=== PATIENT | male | born 1965 | race Caucasian/White ===

== ENCOUNTER 2016-12-18 17:50 | Emergency (ER) | payer BC ==
[~2016-12-18] VITALS: Ht 175.3 cm; Wt 76.6 kg
[2016-12-18 17:57] VITALS: Ht 175.3 cm; Wt 76.6 kg
[2016-12-18] MEDS ORDERED: morphine 4 MG/ML VIAL IV STA (20:58)
[2016-12-18] MEDS ORDERED: SOD CHLORIDE 0.9% 1,000 ML IV STA (20:58)
[2016-12-18] MEDS ORDERED: ONDANSETRON 4 MG INJ IV STA (20:58)
[2016-12-18] MEDS ORDERED: CYAN100080 PO (21:24)
[2016-12-18] MEDS ORDERED: CLOP75TA4 PO (21:25)
[2016-12-18] MEDS ORDERED: ERGO500037 PO (21:25)
[2016-12-18] MEDS ORDERED: INSU200I4 SQ (21:25)
[2016-12-18] MEDS ORDERED: METO25TA7 PO (21:26)
[2016-12-18] MEDS ORDERED: ATOR10TA65 PO (21:27)
[2016-12-18] MEDS ORDERED: BUPR75TA9 PO (21:27)
[2016-12-18] MEDS ORDERED: SERT-165 PO (21:28)
[2016-12-18] MEDS ORDERED: LISI10TA2 PO (21:28)
[2016-12-18] MEDS ORDERED: ASPI-664 PO (21:28)
[2016-12-18] MEDS ORDERED: MIRT15TA5 PO (21:28)
[2016-12-18] MEDS ORDERED: PREG150C PO (21:29)
[2016-12-18] MEDS ORDERED: VITA400C15 PO (21:37)
[2016-12-18 21:38] LABS: ADD SCAN DIFF NO
[2016-12-18] MEDS ORDERED: CALC-621 PO (21:38)
[2016-12-18] MEDS ORDERED: CICL34.6 TP (21:39)
[2016-12-18] MEDS ORDERED: CALC1TAB98 PO (21:39)
[2016-12-18 21:40] LABS: HEMOGLOBIN 13.9 g/dl (14.0-18.0); MEAN CORPUSCULAR HEMOGLOBIN 28.3 pg (29.0-33.0); MEAN CORPUSCULAR HGB CONC 33.1 g/dl (32.0-37.0); MEAN CORPUSCULAR VOLUME 85.5 fl (82.0-101.0); MEAN PLATELET VOLUME 10.8 fl (7.4-10.4); PLATELET COUNT 167 10^3/UL (140-415); RED BLOOD COUNT 4.91 10^6/ul (4.70-6.10); RED CELL DISTRIBUTION WIDTH 13.1 % (11.5-14.5); WHITE BLOOD COUNT 5.4 10^3/ul (4.8-10.8)
[2016-12-18] MEDS ORDERED: PYRI100T59 PO (21:41)
[2016-12-18] MEDS ORDERED: GLUC1CAP16 PO (21:42)
[2016-12-18] MEDS ORDERED: [UNRECOGNIZED DRUG - OTHER] PO (21:44)
[2016-12-18 22:02] LABS: ALBUMIN 4.5 g/dl (3.3-4.9); POTASSIUM 3.9 mmol/L (3.5-5.1)
[2016-12-18 22:04] LABS: BILIRUBIN,INDIRECT 0.6 mg/dl (0-1.1); BILIRUBIN,TOTAL 0.6 mg/dl (0.2-1.3); CREATININE 0.82 mg/dl (0.61-1.24)
[2016-12-18 22:05] LABS: ALBUMIN/GLOBULIN RATIO 1.28
[2016-12-18] MEDS ORDERED: ONDA4TAB14 PO (22:11)
[2016-12-18] MEDS ORDERED: IBUP-1542 PO (22:11)
[2016-12-18 22:40] LABS: URINE BLOOD (Dip) POC Negative (NEGATIVE)
--- NOTE | 2016-12-18 22:45 | ERA ---
ER Documentation Chief Complaint Date/Time DATE: 12/18/16 TIME: 22:43 Chief Complaint ap x 2 weeks HPI Patient is a 51-year-old male with diabetes who presents with abdominal pain and vomiting. The patient was sent from the [facility] clinic by the nurse practitioner for further workup and evaluation with laboratory studies and ultrasound. The patient has had this pain for the past 2 weeks and it has been continuous. He has diarrhea as well. He initially had vomiting but the vomiting has stopped. He tried Pepto-Bismol and Imodium. Upon review of old medical records this is the patient's first visit to the emergency department. ROS All systems reviewed and are negative except as per history of present illness. Medications Home Meds Active Scripts Ondansetron (Ondansetron Odt) 4 Mg Tab.rapdis, 4 MG PO Q6H Y for NAUSEA AND/OR VOMITING, #10 TAB Prov:DOUGLAS CAPELLAN MD 12/18/16 Ibuprofen* (Motrin*) 600 Mg Tab, 600 MG PO Q6H Y for PAIN AND OR ELEVATED TEMP, #30 TAB Prov:DOUGLAS CAPELLAN MD 12/18/16 Reported Medications Fa/Mv,Ca,Iron,Min/Lycopene/Lut (CENTRAVITES TABLET) 1 Each Tablet, 1 EACH PO DAILY, TAB 12/18/16 Gluc HCl/Csa/Iman Hy/Hyalur AC (Glucosamine Chondroitin Cap) 1 Each Capsule, 1 EACH PO DAILY, CAP 12/18/16 Pyridoxine Hcl* (Vitamin B-6*) 100 Mg Tablet, 100 MG PO DAILY, TAB 12/18/16 Ciclopirox/Ure/Camph/Menth/Euc (CICLOPIROX 8% TREATMENT KIT) 34.6 Ml Solution, 1 APPLIC TP QHS, BOTTLE 12/18/16 Calcium Carbonate/Vitamin D3 (Calcium 600 + Vit D 200 Tablet) 1 Each Tablet, 1 EACH PO DAILY, TAB 12/18/16 Vitamin E* (Vitamin E*) 400 Unit Capsule, 400 UNIT PO DAILY, CAP 12/18/16 Pregabalin* (Lyrica*) 150 Mg Capsule, 150 MG PO TID, CAP 12/18/16 Lisinopril* (Lisinopril*) 10 Mg Tablet, 10 MG PO DAILY, #30 TAB 12/18/16 Mirtazapine* (Mirtazapine*) 15 Mg Tablet, 15 MG PO HS, TAB 12/18/16 Aspirin* (Aspirin* EC) 81 Mg Tablet.dr, 81 MG PO DAILY, TAB 12/18/16 Sertraline Hcl* (Sertraline Hcl*) 100 Mg Tablet, 100 MG PO DAILY, #30 TAB 12/18/16 Bupropion Hcl* (Bupropion Hcl*) 75 Mg Tablet, 75 MG PO QAM, TAB 12/18/16 Atorvastatin Calcium (Atorvastatin Calcium) 10 Mg Tablet, 10 MG PO DAILY, #30 TAB 12/18/16 Metoprolol Succinate* (Toprol XL*) 25 Mg Tab.sr.24h, 12.5 MG PO BID, #30 TAB 12/18/16 Insulin Degludec (Tresiba Flextouch U-200) 200 Unit/1 Ml Insuln.pen, 100 UNIT SQ QHS 12/18/16 Clopidogrel Bisulfate* (Clopidogrel Bisulfate*) 75 Mg Tablet, 75 MG PO DAILY, # 30 TAB 12/18/16 Ergocalciferol (Vitamin D2) (VITAMIN D2) 50,000 Unit Capsule, 58778 UNIT PO Q7D , CAP 12/18/16 Cyanocobalamin* (Vitamin B-12*) 1,000 Mcg Tablet.sa, 1000 MCG PO DAILY, TAB 12/18/16 Discontinued Reported Medications Calcium Carbonate-Vitamin D3 (Calcium 600 + Vit D3) 1 Each Tablet, 1 TAB PO DAILY, TAB 12/18/16 Allergies Allergies: Coded Allergies: iodine (Unverified Allergy, Unknown, 12/18/16) Uncoded Allergies: IV CONTRAST (Allergy, Unknown, 12/18/16) PMhx/Soc Medical and Surgical Hx: pt denies Surgical Hx Hx Neurological Disorder: Yes (memory impairred ) Hx Respiratory Disorders: No Hx Cardiac Disorders: Yes (htn) Hx Miscellaneous Medical Probl: Yes (diabetes) Hx Alcohol Use: No Hx Substance Use: No Hx Tobacco Use: No Smoking Status: Unknown if ever smoked Physical Exam Vitals Vital Signs Date Time Temp Pulse Resp B/P Pulse Ox O2 Delivery O2 Flow Rate FiO2 12/18/16 17:57 97.7 83 18 131/79 99 Physical Exam Const: [] Head: Atraumatic Eyes: Normal Conjunctiva ENT: Normal External Ears, Nose and Mouth. Neck: Full range of motion..~ No meningismus. Resp: Clear to auscultation bilaterally Cardio: Regular rate and rhythm, no murmurs Abd: Soft, non tender, non distended. Normal bowel sounds Skin: No petechiae or rashes Back: No midline or flank tenderness Ext: No cyanosis, or edema Neur: Awake and alert Psych: Normal Mood and Affect Result Diagram: 12/18/16211912/18/162119 Results 24 hrs Laboratory Tests Test 12/18/16 21:18 12/18/16 21:20 12/18/16 22:40 Bedside Glucose 76mg/dL White Blood Count 5.410^3/ul Red Blood Count 4.9110^6/ul Hemoglobin 13.9g/dl Hematocrit 42.0% Mean Corpuscular Volume 85.5fl Mean Corpuscular Hemoglobin 28.3pg Mean Corpuscular Hemoglobin Concent 33.1g/dl Red Cell Distribution Width 13.1% Platelet Count 60072^3/UL Mean Platelet Volume 10.8fl Sodium Level 143mmol/L Potassium Level 3.9mmol/L Chloride Level 102mmol/L Carbon Dioxide Level 27mmol/L Anion Gap 18 Blood Urea Nitrogen 12mg/dl Creatinine 0.82mg/dl Glucose Level 82mg/dl Calcium Level 9.0mg/dl Total Bilirubin 0.6mg/dl Direct Bilirubin 0.00mg/dl Indirect Bilirubin 0.6mg/dl Aspartate Amino Transf (AST/SGOT) 26IU/L Alanine Aminotransferase (ALT/SGPT) 32IU/L Alkaline Phosphatase 69IU/L Total Protein 8.0g/dl Albumin 4.5g/dl Globulin 3.50g/dl Albumin/Globulin Ratio 1.28 Lipase 87U/L Bedside Urine pH (LAB) 7.0 Bedside Urine Protein (LAB) Negative Bedside Urine Glucose (UA) Negative Bedside Urine Ketones (LAB) Negative Bedside Urine Blood Negative Bedside Urine Nitrite (LAB) Negative Bedside Urine Leukocyte Esterase (L Negative Current Medications Medications (Trade) Dose Ordered Sig/Oscar Route PRN Reason Start Time Stop Time Status Last Admin Dose Admin Sodium Chloride (NS) 1,000 ml @ 1,000 mls/hr Q1H STAT IV 12/18/16 20:58 12/18/16 21:57 DC 12/18/16 21:15 Morphine Sulfate (morphine) 4 mg ONCE STAT IV 12/18/16 20:58 12/18/16 20:59 DC 12/18/16 21:15 Ondansetron HCl (Zofran Inj) 4 mg ONCE STAT IV 12/18/16 20:58 12/18/16 20:59 DC 12/18/16 21:15 Departure Diagnosis: Primary Impression: Vomiting and diarrhea Additional Impression: Abdominal pain Condition: Fair Patient Instructions: Abdominal Pain, Self-Care for Vomiting and Diarrhea Referrals: Your doctor Additional Instructions: Call your primary care doctor TOMORROW for an appointment during the next 1-2 days.See the doctor sooner or return here if your condition worsens before your appointment time. DOUGLAS CAPELLAN MD Dec 18, 2016 22:44
--- NOTE | 2016-12-18 22:46 | RADRPT ---
PROCEDURE: CT abdomen and pelvis without contrast. CLINICAL INDICATION: Abdominal pain and left lower quadrant pain with diarrhea TECHNIQUE: CT scan of the abdomen and pelvis without contrast was performed on a multislice CT [facility] [place] utilizing axial imaging from the lung bases through the pubis symphysis. The patient was scann ed without intravenous contrast. Sagittal and coronal reformatted images were made. The CTDIvol is 15.48 mGy and the DLP is 950.33 mGycm. One of the following 3 dose reduction techniques were used during this CT examination: automated exp osure control; adjustment of the mA and /or kV according to patient size; or use of iterative recons truciton technique. COMPARISON: Abdominal ultrasound FINDINGS: The lung bases are clear. The heart size is normal. No pericardial or pleural effusion is present. The visualized liver, spleen, pancreas, gallbladder, and bilateral adrenal glands are normal. The b ilateral kidneys are normal with the exception of a nonobstructive 1 mm calculus in the left mid bebeto al pelvis. No evidence for hydroureteronephrosis is present. The visualized urinary bladder is wel l distended. The aorta demonstrates mild vascular calcifications without aneurysmal dilatation. The visualized bowel is normal. The appendix is normal. No evidence for pneumoperitoneum or ascites is present . The bilateral fatty inguinal hernias are noted. A well distended urinary bladder is present. The prostate gland is normal. The imaged osseous structures demonstrate mild degenerative spondylosis o f the spine with grade 1 spondylolisthesis of L5 on S1 and bilateral spondylolysis. Moderate disk s pace height loss and vacuum disk phenomenon is present at the L4-5 and L5-S1 levels. IMPRESSION: 1. Nonobstructive bowel gas pattern and no evidence for diverticulosis, diverticulitis, or acute ap pendicitis. 2. Nonobstructive left mid pole renal calculus. 3. Mild atherosclerotic vascular disease 4. Grade 1 spondylolisthesis of L5 and S1 with bilateral L5 spondylolysis. 5. Degenerative endplate and vacuum disk phenomenon at L4-5 and L5-S1 RPTAT: HDC .Rolanda Baez MD, MD Date Time Electronically viewed and signed by .Rolanda Baez MD, on 12/18/2016 22:45 .C/
--- NOTE | 2016-12-18 22:49 | RADRPT ---
PROCEDURE: US right upper quadrant CLINICAL INDICATION: Abdominal pain TECHNIQUE: Multiple real-time images were acquired of the patient's right upper abdomen utilizing a high resolution transducer. COMPARISON: CT abdomen 12/18/2016 FINDINGS: Liver: Normal in size, contour and echogenicity. Normal directional blood flow is seen within the p atent main portal vein. The maximum dimension estimated at 17.8 cm . Gallbladder: Normal. No sonographic Munoz's sign is reported. Common bile duct: Normal; 2.9 mm. There is no evidence for choledocholithiasis. Right Kidney: Normal; maximum length measured at approximately 10.3 cm. Pancreas: Obscured by bowel gas. RPTAT:HJJR IMPRESSION: Bowel gas obscures visualization of the pancreas, otherwise unremarkable right upper quadrant ultras ound. Physician Gisela Date Time Electronically viewed and signed by Physician Gisela on 12/18/2016 22:48 /
[2016-12-18 23:00] VITALS: BP 174/96; PULSE 76; RESP 18
[2016-12-18 23:01] LABS: ADD UMIC NO; URINE BILIRUBIN (Dip) NEGATIVE (NEGATIVE); URINE BLOOD (Dip) NEGATIVE (NEGATIVE); URINE COLOR LT. YELLOW (YELLOW); URINE GLUCOSE (Dip) NEGATIVE (NEGATIVE); URINE KETONES (Dip) NEGATIVE (NEGATIVE); URINE LEUKOCYTE ESTERASE (Dip) NEGATIVE (NEGATIVE); URINE NITRITE (Dip) NEGATIVE (NEGATIVE); URINE TOTAL PROTEIN (Dip) NEGATIVE (NEGATIVE); URINE UROBILINOGEN (Dip) 0.2 E.U./dL (0.1-1.0)
[2016-12-18 23:12] LABS: EOSINOPHILS # 0.2 10^3/ul (0.0-0.5); LYMPHOCYTES # 1.5 10^3/ul (0.8-2.9); MONOCYTE # 0.5 10^3/ul (0.3-0.9); NEUTROPHIL # 3.2 10^3/ul (1.6-7.5); PLATELET ESTIMATE PLT APPEAR ADEQUATE
== END 2016-12-18 23:06 | disposition home or self-care (01) ==
LOC: E/R 17:50
DX: R11.10 Vomiting, unspecified (principal); E11.9 Type 2 diabetes mellitus without complications; I10 Essential (primary) hypertension; R19.7 Diarrhea, unspecified; Z79.82 Long term (current) use of aspirin; Z79.4 Long term (current) use of insulin
CPT/HCPCS: 36415; 74176; 76705; 80053; 81003; 82962; 83690; 85025; 96374; 96375; 99285; J2270; J2405; J7030

== ENCOUNTER 2018-12-17 14:58 | Emergency (ER) | payer BC ==
[~2018-12-17] VITALS: Ht 180.3 cm; Wt 83.7 kg
[~2018-12-17 14:58] MED LIST: ASPI-817 PO; ATOR10TA65 PO; BUPR75TA9 PO; CALC1TAB98 PO; CICL34.6 TP; CLOP75TA19 PO; CYAN100080 PO; ERGO500013 PO; GLUC1CAP16 PO; IBUP-1542 PO; INSU200I4 SQ; LISI10TA2 PO; METO-335 PO; MIRT15TA5 PO; ONDA4TAB14 PO; PREG150C PO; PYRI100T2 PO; SERT-165 PO; VITA400C15 PO; [UNRECOGNIZED DRUG - OTHER] PO
[2018-12-17 15:04] VITALS: Ht 180.3 cm; Wt 83.7 kg
[2018-12-17] MEDS ORDERED: IBUPROFEN 800 MG TAB PO ONE (16:00)
[2018-12-17] MEDS ORDERED: IBUP-1542 PO (16:55)
[2018-12-17 17:06] VITALS: BP 150/95; PULSE 88; RESP 18
--- NOTE | 2018-12-17 18:37 | ERD ---
ER Documentation Chief Complaint Chief Complaint L lower leg pain/swelling X 1 day HPI Patient is a 53-year-old male with hypertension and diabetes who presents with left leg swelling. He says that his left leg feels "tight". He said that it started this morning at 11 AM. He tried elevating his leg without much change. He said the left leg is painful but he has not taken any pain medications as of yet. He is currently on antibiotics for a bladder infection. He has had no recent travel and no trauma. Upon review of old medical records the patient one previous visit to the ER in 2017. ROS All systems reviewed and are negative except as per history of present illness. Medications Home Meds Active Scripts Ibuprofen* (Motrin*) 600 Mg Tab, 600 MG PO Q6H PRN for PAIN AND OR ELEVATED TEMP, #30 TAB Prov:DOUGLAS CAPELLAN MD 12/17/18 Ondansetron (Ondansetron Odt) 4 Mg Tab.rapdis, 4 MG PO Q6H PRN for NAUSEA AND/OR VOMITING, #10 TAB Prov:DOUGLAS CAPELLAN MD 12/18/16 Ibuprofen* (Motrin*) 600 Mg Tab, 600 MG PO Q6H PRN for PAIN AND OR ELEVATED TEMP, #30 TAB Prov:DOUGLAS CAPELLAN MD 12/18/16 Reported Medications Fa/Mv,Ca,Iron,Min/Lycopene/Lut (CENTRAVITES TABLET) 1 Each Tablet, 1 EACH PO DAILY, TAB 12/18/16 Gluc HCl/Csa/Iman Hy/Hyalur AC (Glucosamine Chondroitin Cap) 1 Each Capsule, 1 EACH PO DAILY, CAP 12/18/16 Pyridoxine Hcl* (Vitamin B-6*) 100 Mg Tablet, 100 MG PO DAILY, TAB 12/18/16 Ciclopirox/Ure/Camph/Menth/Euc (CICLOPIROX 8% TREATMENT KIT) 34.6 Ml Solution, 1 APPLIC TP QHS, BOTTLE 12/18/16 Calcium Carbonate/Vitamin D3 (Calcium 600 + Vit D 200 Tablet) 1 Each Tablet, 1 EACH PO DAILY, TAB 12/18/16 Vitamin E* (Vitamin E*) 400 Unit Capsule, 400 UNIT PO DAILY, CAP 12/18/16 Pregabalin* (Lyrica*) 150 Mg Capsule, 150 MG PO TID, CAP 12/18/16 Lisinopril* (Lisinopril*) 10 Mg Tablet, 10 MG PO DAILY, #30 TAB 12/18/16 Mirtazapine* (Mirtazapine*) 15 Mg Tablet, 15 MG PO HS, TAB 12/18/16 Aspirin* (Aspirin* EC) 81 Mg Tablet.dr, 81 MG PO DAILY, TAB 12/18/16 Sertraline Hcl* (Sertraline Hcl*) 100 Mg Tablet, 100 MG PO DAILY, #30 TAB 12/18/16 Bupropion Hcl* (Bupropion Hcl*) 75 Mg Tablet, 75 MG PO QAM, TAB 12/18/16 Atorvastatin Calcium (Atorvastatin Calcium) 10 Mg Tablet, 10 MG PO DAILY, #30 TAB 12/18/16 Metoprolol Succinate* (Toprol XL*) 25 Mg Tab.sr.24h, 12.5 MG PO BID, #30 TAB 12/18/16 Insulin Degludec (Tresiba Flextouch U-200) 200 Unit/1 Ml Insuln.pen, 100 UNIT SQ QHS 12/18/16 Clopidogrel Bisulfate* (Clopidogrel Bisulfate*) 75 Mg Tablet, 75 MG PO DAILY, #30 TAB 12/18/16 Ergocalciferol (Vitamin D2) (VITAMIN D2) 50,000 Unit Capsule, 04448 UNIT PO Q7D, CAP 12/18/16 Cyanocobalamin* (Vitamin B-12*) 1,000 Mcg Tablet.sa, 1000 MCG PO DAILY, TAB 12/18/16 Allergies Allergies: Coded Allergies: iodine (Unverified Allergy, Unknown, 12/18/16) Uncoded Allergies: IV CONTRAST (Allergy, Unknown, 12/18/16) PMhx/Soc History of Surgery: No Anesthesia Reaction: No Hx Neurological Disorder: Yes ( impaired memory) Hx Respiratory Disorders: No Hx Cardiac Disorders: Yes (htn) Hx Psychiatric Problems: No Hx Miscellaneous Medical Probl: Yes (diabetes) Hx Alcohol Use: No Hx Substance Use: No Hx Tobacco Use: No Smoking Status: Former smoker FmHx Family History: diabetes Physical Exam Vitals Vital Signs Date Temp Pulse Resp B/P (MAP) Pulse Ox O2 O2 Flow FiO2 Time Delivery Rate 12/17/18 88 18 150/95 100 Room Air 17:06 (113) 12/17/18 98.1 110 18 139/81 97 15:04 (100) Physical Exam Const: No acute distress Head: Atraumatic Eyes: Normal Conjunctiva ENT: Normal External Ears, Nose and Mouth. Neck: Full range of motion. No meningismus. Resp: Clear to auscultation bilaterally Cardio: Regular rate and rhythm, no murmurs Abd: Soft, non tender, non distended. Normal bowel sounds Skin: No petechiae or rashes Back: No midline or flank tenderness Ext: No appreciable leg swelling of the left or the right leg Neur: Awake and alert Psych: Normal Mood and Affect Results 24 hrs Current Medications Medications Dose Sig/Oscar Start Time Status Last (Trade) Ordered Route PRN Stop Time Admin Dose Reason Admin Ibuprofen 800 mg ONCE ONCE 12/17/18 DC 12/17/18 (Motrin) PO 16:00 15:57 12/17/18 16:01 Procedures/MDM Left lower extremity ultrasound negative for DVT per radiology. Patient is a 53-year-old male presents with left leg pain and subjective swelling. Ultrasound is negative for DVT. I do not believe the patient requires further work-up or admission to the hospital at this time. I see no sign of infection. The patient will be discharged home but will need to follow- up with his primary doctor within 24 to 48 hours. He can return for any worsening symptoms. Departure Diagnosis: Primary Impression: Pain of left leg Condition: Fair Patient Instructions: Leg Spasm Referrals: Dr. Pozo Additional Instructions: Call your primary care doctor TOMORROW for an appointment during the next 1-2 days.See the doctor sooner or return here if your condition worsens before your appointment time. DOUGLAS CAPELLAN MD Dec 17, 2018 18:37
== END 2018-12-17 17:31 | disposition home or self-care (01) ==
LOC: E/R 14:58
DX: M79.605 Pain in left leg (principal); I10 Essential (primary) hypertension; E11.9 Type 2 diabetes mellitus without complications; Z79.01 Long term (current) use of anticoagulants; Z79.4 Long term (current) use of insulin; Z79.82 Long term (current) use of aspirin; Z87.891 Personal history of nicotine dependence
CPT/HCPCS: 93971; 99284; Z7610